=== PATIENT | male | born 1990 | race Asian ===

== ENCOUNTER 2017-03-20 08:44 | Day surgery (SDC) | END 2017-03-20 14:59 | disposition home or self-care (01) | DX: Z86.010 Personal history of colon polyps (principal); K64.8 Other hemorrhoids; E11.9 Type 2 diabetes mellitus without complications | CPT/HCPCS: 45378; 82962; J2250; J3010; Z7610 ==

== ENCOUNTER 2017-06-21 08:14 | Day surgery (SDC) | END 2017-06-21 10:50 | disposition home or self-care (01) ==